=== PATIENT | male | born 1950 | race Two or more races ===

== ENCOUNTER → 2017-06-21 | Outpatient (CLI) | payer MEDICARE, OTHER | END | disposition home or self-care (01) | LOC: RADPV 09:57 | PROVIDERS: ATTEND Internal Medicine | DX: M51.86 Other intervertebral disc disorders, lumbar region (principal); M51.87 Other intervertebral disc disorders, lumbosacral region; M48.061 Spinal stenosis, lumbar region without neurogenic claudication; M48.07 Spinal stenosis, lumbosacral region; M40.46 Postural lordosis, lumbar region | CPT/HCPCS: 72100 ==